=== PATIENT | female | born 1945 | race Caucasian/White ===

== ENCOUNTER → 2016-07-08 | Outpatient (CLI) | payer MEDICARE, BC ==
[~2016-07-08] MED LIST: CLARITIN10 M3 PO; CLONIDINE PO; FUROSEMIDE40 MG PO; HYDRALAZINE HC100 MG PO; IBUPROFEN800 MG PO; IMDUR-ER60 MG PO; LEVOTHYROXINE175 MCG PO; LINZESS290 MCG PO; NORVASC PO; OMEPRAZOLE40 MG PO; PROVASTIN PO; TENORMIN25 MG PO; TIZANIDINE HCL4 M1 PO
--- NOTE | ~2016-07-08 | XA30 ---
[facility] A Service of [facility] & [facility] RADIOLOGY TEXT RESULTS PATIENT: ROSANA DAILEY [facility] UNIT #: [id number] AGE: [address]: Reno Guevara MD SEX: F ORDER DR: [id number] [facility] [address] [place], [place] [address] [id number] O MR#: [id number] Acc #: [id number] NAME: ROSANA DAILEY : 1945 SEX: F STUDY DATE/TIME: 07/08/2016 13:21 UNIT: [facility] ROOM: STUDY DESCRIPTION: XA Arthrocentesis Major Joint Attending Physician: Reno Guevara M.D. Ordering Physician: Reno Guevara M.D. Primary Care Physician: Saskia Chacon M.D. MEDICAL IMAGING REPORT This report is preliminary unless electronic signature is present PROCEDURE Fluoroscopically-guided right hip joint injection with steroid and local anesthetic. INDICATIONS Right hip pain and arthritis. The fluoro time was 0.6 minutes. The reference air kerma is 27 mg. The risks, benefits, and alternatives of the procedure were discussed with the patient, informed consent was obtained. In the procedure room, a time-out was performed confirming correct patient and procedure. All elements of maximal sterile-barrier technique utilized according to guidelines appropriate for the procedure. TECHNIQUE/FINDINGS The skin overlying the right hip was prepped and draped in the usual sterile fashion. 1% lidocaine was utilized to anesthetize the skin and underlying subcutaneous tissues. Next, under fluoroscopic guidance, 22-gauge needle was advanced into the hip joint space. Small amount of contrast injected confirming satisfactory positioning. Next, 2 mL of 40 mg/mL of Depo-Medrol followed by 3 mL of bupivacaine was injected into the hip joint space. The needle was removed and a sterile dressing was applied. No immediate complications. Pre-procedure pain with 6; postprocedure pain was 4. IMPRESSION Technically successful fluoroscopically guided hip joint injection with steroid and local anesthetic. Dictated by... Chay Mancini M.D. [facility] A Service of [facility] & [facility] RADIOLOGY TEXT RESULTS PATIENT: ROSANA DAILEY LOCATION: [facility] : 43 UNIT #: [id number] AGE: [address]: Reno Guevara MD SEX: F ORDER DR: THIS IS AN ELECTRONICALLY VERIFIED REPORT Chay Mancini M.D. at 07/09/2016 9:32 AM JAME/ivan TD: 07/08/2016 17:22 JOB #: [id number] MEDICAL IMAGING REPORT Page 1 of 1 COPY
== END | disposition home or self-care (01) ==
LOC: CIVR 12:44
PROC: 3E0U33Z Introduction of Anti-inflammatory into Joints, Percutaneous Approach (ICD-10-PCS; principal; 2016-07-08)
PROC: 3E0U3BZ Introduction of Anesthetic Agent into Joints, Percutaneous Approach (ICD-10-PCS; 2016-07-08)
DX: M16.11 Unilateral primary osteoarthritis, right hip (principal)
CPT/HCPCS: 77002; J1030; Q9966

== ENCOUNTER → 2016-10-08 | Outpatient (CLI) | payer MEDICARE, BC ==
--- NOTE | ~2016-10-08 | XA30 ---
[facility] A Service of [facility] & [facility] RADIOLOGY TEXT RESULTS PATIENT: ROSANA DAILEY [facility] : 43 UNIT #: [id number] AGE: [address]: Reno Guevara MD SEX: F ORDER DR: [id number] [facility] [address] [place], [place] [address] [id number] O MR#: [id number] Acc #: [id number] NAME: ROSANA DAILEY : 1945 SEX: F STUDY DATE/TIME: 10/08/2016 10:41 UNIT: [facility] ROOM: STUDY DESCRIPTION: XA Arthrocentesis Major Joint Attending Physician: Reno Guevara M.D. Referring Physician: Reno Guevara M.D. Ordering Physician: Reno Guevara M.D. Primary Care Physician: Saskia Chacon M.D. MEDICAL IMAGING REPORT This report is preliminary unless electronic signature is present EXAM Fluoroscopically-guided right hip injection INDICATION Right hip pain. Patient's most recent injection was performed July 08, 2016. PROCEDURE The risks, benefits, and alternatives to the procedure were explained to the patient, and signed, informed, informed consent was obtained. She was placed supine on the angiographic table and was prepped and draped in the usual sterile fashion. Time-out was performed as per protocol. Skin and subcutaneous tissues were anesthetized with buffered lidocaine and a 22-gauge spinal needle was advanced into the joint space. Contrast was injected which confirmed location within the joint space. I then instilled a combination of lidocaine, bupivacaine and Depo-Medrol. Needle was then removed and manual pressure was applied until hemostasis was obtained. Total fluoroscopy time was 0.2 minutes. AK was 9 mGy. IMPRESSION Technically successful fluoroscopically-guided right hip injection as noted above. Fluoroscopy was used during the procedure and permanent images were saved. Dictated by... Desire Brumfield M.D. THIS IS AN ELECTRONICALLY VERIFIED REPORT Desire Brumfield M.D. at 10/11/2016 5:06 PM AFF/mjs TD: 10/11/2016 13:56 [facility]. [facility] A Service of [facility] & [facility] RADIOLOGY TEXT RESULTS PATIENT: ROSANA DAILEY LOCATION: [facility] ACC #: [id number] : 41 UNIT #: [id number] AGE: [address]: Reno Guevara MD SEX: F ORDER DR: JOB #: [id number] MEDICAL IMAGING REPORT Page 1 of 1 COPY
== END | disposition home or self-care (01) ==
LOC: CIVR 10:12
DX: M25.551 Pain in right hip (principal); M19.90 Unspecified osteoarthritis, unspecified site
CPT/HCPCS: 77002; J1030; Q9966

== ENCOUNTER 2016-11-24 05:15 | Inpatient (IN) | payer MEDICARE, BC ==
[~2016-11-24] VITALS: Ht 152.4 cm; Wt 96.0 kg
--- NOTE | ~2016-11-24 | CO ---
Unit #: [id number] #: [id number] Patient: ROSANA CANDELARIO [id number] [facility] [address] [place] [address] [place], [place] [address] [id number] I MR#: [id number] NAME: ROSANA CANDELARIO ROOM: [facility] Age: 71 Sex: F Admission Date: 11/24/2016 : 1945 Attending Physician: Gala Brock M.D. Primary Care Physician: Saskia Chacon M.D. Consultation Date: 11/24/2016 CONSULTATION REPORT HISTORY OF PRESENT ILLNESS Ms. Candelario is a 71-year-old female, who presented to the emergency room at [facility] with complaints of nausea and vomiting for several days. She was noted to have significant hypertension that did not resolve with multiple doses of the medications, so she was transported to [facility] for treatment of her accelerated hypertension. She also was complaining of some abdominal pain after several days of nausea and vomiting. She denied any hematemesis, hematochezia, or melena. She stated she had a normal stool for her yesterday. She describes it is soft and brown. She does have a history of chronic constipation and takes Linzess and multiple stool softeners daily. She complained of being hot, but had no documented fever or chills. She denies any dysuria or productive cough. She has had a colonoscopy in 2008 that was normal, but she says she thinks she has internal hemorrhoids as she has blood on the toilet paper. She has had a previous upper scope in 2004. She cannot recall the reason, but did not have ulcer disease. PAST MEDICAL HISTORY She has had a cholecystectomy, appendectomy, hysterectomy, colonoscopy, EGD, history of COPD, hypertension, chronic constipation, hypothyroidism, reflux. ALLERGIES Allergic to Cipro, penicillin, and codeine. FAMILY HISTORY Noncontributory. SOCIAL HISTORY Nonsmoker. REVIEW OF SYSTEMS As above. PHYSICAL EXAMINATION VITAL SIGNS: Temperature is 99.1, pulse 85 and regular, respirations 16, currently her blood pressure is 120/71. GENERAL: She is awake, alert, oriented in good spirits. No acute disease. HEENT: Unremarkable. CARDIAC: Regular rhythm. LUNGS: Clear. ABDOMEN: Nondistended and soft. She complains of tenderness in the right lower quadrant, but it is very deep more in the pelvis and may be coming Unit #: [id number] #: [id number] Patient: ROSANA CANDELARIO from her chronic right hip osteoarthritis. ABDOMEN: Soft. When distracted ,there is no guarding, mass, or rebound. She has well-healed surgical scars without hernia. EXTREMITIES: No edema. NEUROLOGIC: Grossly intact. DIAGNOSTIC STUDIES LABORATORY RESULTS: Show potassium of 3.3, otherwise her chemistries are normal. Calcium was 10.2 with the upper limit normal being 10.3. Lactic acid on admission was 2.4. Urinalysis showed 2 to 5 white cells, 5 to 10 red cells. INR is 1.09. White count 11.5, hemoglobin 18.1, platelets 228,000. There was yeast in her urine. IMAGING STUDIES: CT scan of the chest showed no acute disease. There is possibly some underlying cardiomegaly, but no pneumonia or acute findings. CT of the abdomen and pelvis shows no acute findings. ASSESSMENT AND PLAN The patient with abdominal pain after several days of nausea and vomiting. Her vomiting is certainly controlled at this point, and she states she is hungry and thirsty. CT scan did not show any intra-abdominal pathology, in particular no bowel obstruction. We will check some further labs and stimulate her bowel. She can have a clear liquids for now. Her hypertension is being managed by the Medical Service. No acute surgical issues are noted. Her abdominal pain where it is deep in the right lower quadrant certainly could be radiating from her hip as she stated that she is needing hip replacement. Dictated by... Tres Fu/ruperto TD: 11/24/2016 19:23 JOB #: [id number] CONSULTATION REPORT Page 1 of 1 X Uri Aden MD CONSULTATION REPORT
--- NOTE | ~2016-11-24 | HP ---
Unit #: [id number] #: [id number] Patient: ROSANA DAILEY [id number] [facility] [address] [place], [place] [address] [id number] I MR#: [id number] NAME: ROSANA DAILEY ROOM: [facility] Age: 71 Sex: F Admission Date: 11/24/2016 : 1945 Attending Physician: Gala Brock M.D. Primary Care Physician: Saskia Chacon M.D. HISTORY AND PHYSICAL REASON FOR ADMISSION Intractable nausea, vomiting, accelerated hypertension due to inability to take routine medications, possible colitis. HISTORY OF PRESENT ILLNESS Patient is a very pleasant 71-year-old female with no previous hospital admissions here at [facility] who has a prior history of asthma, arthritis, COPD, osteoarthritis, hypertension, IgG deficiency, pulmonary hypertension, sleep apnea, who presented to [facility] with complaints of right lower quadrant pain and/or discomfort. She also stated she had approximately a 24-48 hour history of nausea with a 24 hour history of associated vomiting episodes. She was unable to keep her blood pressure medications down. While she was evaluated at the outside facility, she was noted to have persistent systolic blood pressures greater than 200 and, in consideration of accelerated hypertension as well as intractable nausea/vomiting, decision was made for transfer to [facility] for further evaluation. There are chart notes which are documented in regards to her CT chest did not show any acute findings as well as CT pelvis which did not show any acute findings but I do not have the CT abdomen report via paperwork that was sent with patient. At outside facility, patient's blood pressure was documented at 207/100. Her temperature was also noted to be 100.6. Glucose was 177. White count 11.5, hemoglobin 18.1. UA mildly positive for ketones, blood, bacteria as well as yeast. PAST MEDICAL HISTORY 1. IgG deficiency approximately 10 years. 2. Osteoarthritis. 3. Asthma. 4. COPD. 5. Osteoarthritis. 6. Hypertension. 7. Pulmonary hypertension. 8. Sleep apnea. PAST SURGICAL HISTORY 1. Cholecystectomy. 2. Tonsillectomy. 3. Hysterectomy. Unit #: [id number] #: [id number] Patient: ASHLIE,ROSANA 4. Knee surgery. 5. Uvula surgery. FAMILY HISTORY Heart disease - mother. DOCUMENTED MEDICATIONS 1. Amitiza. 2. Linzess. 3. Lotensin. 4. Prilosec. 5. Singulair. 6. Clonidine. 7. Hydralazine. 8. Imdur. 9. Synthroid. 10. Losartan. 11. Prednisone. ALLERGIES Cipro, codeine, penicillin. SOCIAL HISTORY Negative alcohol, negative tobacco, negative illicit drug use. REVIEW OF SYSTEMS Please see HPI. 12-point otherwise negative except for those positives noted in the HPI. PHYSICAL EXAMINATION AT OUTSIDE FACILITY VITAL SIGNS: Temperature noted to be 100.6, blood pressure 207/100, heart rate 84. GENERAL APPEARANCE: The patient is alert, oriented, no acute distress. SKIN: Warm. HEAD: Normocephalic, atraumatic. NECK: Trachea midline. EYE: Pupils are equal, round, reactive to light. ENT/MOUTH EXAM: Oral mucosa moist. CVS: S1, S2 without murmur. RESPIRATORY: Clear, nonlabored. MUSCULOSKELETAL: Normal range of motion. GI: Soft, nondistended. Patient has right lower abdomen tenderness to palpation. No rebound, no guarding. NEUROLOGIC: A and O x3. PSYCHIATRIC: Cooperative. Normal mood and affect demonstrated. INITIAL ADMISSION DIAGNOSES 1. Intractable nausea and vomiting. 2. Accelerated hypertension. 3. Presumed colitis per patient. However, I do not have CT abdomen and pelvis reports. 4. Leukocytosis. 5. IgG deficiency. 6. History of hypertension. 7. COPD. 8. Pulmonary hypertension. 9. Prior history of osteoarthritis. Unit #: [id number] #: [id number] Patient: ROSANA DAILEY PLAN Admission, ICU. Wire Stripper consult. Cardene drip secondary to inability to tolerate p.o. LSA consult. Obtain previous records in regards to CT abdomen. If not performed, will perform now. Ascertain if true allergies to Cipro and/or penicillin. Routine symptom management. Electrolyte replacement. Ultrasound gallbladder to rule out underlying gallbladder etiology. Plans were reviewed with patient. She expresses understanding and agreement. We will try to transition her back to oral medications once tolerable. Dictated by Tres aBird/muna TD: 11/24/2016 11:55 JOB #: [id number] HISTORY AND PHYSICAL Page 1 of 1 X Gala Brock MD HISTORY AND PHYSICAL
--- NOTE | ~2016-11-24 | DS ---
Unit #: [id number] #: [id number] Patient: ROSANA DAILEY [id number] [address] [place], [place] [address] [id number] I MR#: [id number] NAME: ROSANA DAILEY ROOM: 215 Age: 71 Sex: F Admission Date: 11/24/2016 : 1945 Discharge Date: 11/27/2016 Attending Physician: Gala Brock M.D. Primary Care Physician: Saskia Chacon M.D. DISCHARGE SUMMARY REASON FOR ADMISSION Transfer from outside facility secondary to intractable nausea and vomiting, accelerated hypertension, inability to take routine medications, questionable colitis. HISTORY OF PRESENT ILLNESS/HOSPITAL COURSE Please refer to H and P for complete details. Initially, the patient's blood pressure was elevated. The patient was placed on Cardene drip. This subsequently placed the patient in the ICU for ongoing care. Cardene drip was gradually weaned. The patient was maintained on symptomatic management in regard to her nausea and vomiting, which did show improvement. She was able to initially tolerate clears and was gradually transitioned to a regular diet. Blood pressure medications were resumed. There was questionable colitis seen on outside facility; however, CT chest, abdomen, and pelvis as obtained from outside facility has not shown any acute colitis. Initial urinalysis was also positive, but final urine culture did not show any acute bacterial growth. Today, at the time of discharge, the patient's laboratory studies showed a creatinine of 0.8. Electrolytes are unremarkable. Hemoglobin is 13.1, white count 7.1. The patient has tolerated diet well without difficulty. The patient will be discharged home in stable condition on her routine medications including Claritin 10 mg, Linzess, as well as hydralazine. In addition, we will add Norvasc 5 mg p.o. daily to her regimen. FINAL DISCHARGE DIAGNOSES 1. Accelerated hypertension, now improved. 2. Headache/intractable likely secondary to accelerated hypertension. 3. Intractable nausea and vomiting, now improved. 4. Prior history of IgG deficiency. 5. Chronic obstructive pulmonary disease. 6. Arthritis. 7. Asthma. 8. Osteoarthritis. Unit #: [id number] #: [id number] Patient: ROSANA DAILEY 9. Pulmonary hypertension. 10. Sleep apnea. DISCHARGE MEDICATIONS Claritin 10 mg p.o. daily; Linzess 290 mcg p.o. daily; Norvasc 5 mg p.o. daily; hydralazine 100 mg p.o. q.8; Zanaflex 4 mg p.o. q.8 p.r.n.; Synthroid 175 mcg p.o. daily, note new dosage; Imdur 60 mg p.o. daily. DISCHARGE INSTRUCTIONS Follow up PCP in 7 days. The patient to have a repeat BMP and TSH level in 4 weeks. Her Synthroid dosage was decreased from 200 mcg down to 175 mcg secondary to decreased TSH. DISCHARGE DISPOSITION Home. Dictated by... Tres Baird/ruperto TD: 11/30/2016 05:49 JOB #: [id number] DISCHARGE SUMMARY Page 1 of 1 X Gala Brock MD X DISCHARGE SUMMARY
--- NOTE | ~2016-11-24 | CO ---
Unit #: [id number] #: [id number] Patient: ROSANA DAILEY [id number] [address] [address] [id number] I MR#: [id number] NAME: ROSANA DAILEY ROOM: 215 Age: 71 Sex: F Admission Date: 11/24/2016 : 1945 Attending Physician: Gala Brock M.D. Primary Care Physician: Saskia Chacon M.D. Consultation Date: 11/24/2016 CONSULTATION REPORT REASON FOR CONSULT ICU management. REASON FOR ADMISSION Intractable nausea and vomiting. HISTORY OF PRESENT ILLNESS This is a very pleasant 71-year-old female with past medical history significant for IgG deficiency, osteoarthritis, asthma, COPD, hypertension, pulmonary hypertension, sleep apnea who presented to the emergency room with 2 days history of progressive abdominal discomfort and pain associated with intractable nausea, vomiting and loose stool. In the emergency room, her blood pressure was noted to be above 200. Patient was admitted to the ICU for blood pressure management. Patient stated that she was unable to keep any of her medication down and this is likely the reason for her uncontrolled hypertension. PAST MEDICAL HISTORY 1. IgG deficiency. 2. Osteoarthritis. 3. Asthma. 4. COPD. 5. Osteoarthritis. 6. Hypertension. 7. Pulmonary hypertension. 8. Sleep apnea. PAST SURGICAL HISTORY 1. Cholecystectomy. 2. Tonsillectomy. 3. Hysterectomy. 4. Knee surgery. 5. Uvula surgery. FAMILY HISTORY Heart disease. HOME MEDICATION 1. Prilosec. 2. Singulair. 3. Clonidine. 4. Hydralazine. Unit #: [id number] #: [id number] Patient: ROSANA DAILEY 5. Imdur. 6. Synthroid. 7. Losartan. 8. Prednisone. 9. Amitiza. ALLERGIES Cipro, codeine, penicillin. SOCIAL HISTORY No history of alcohol, drug abuse or smoking. REVIEW OF SYSTEMS 12-point review of systems were obtained and were negative except for what was mentioned in the HPI. PHYSICAL EXAM GENERAL: The patient appears tired and sick but she is not toxic. VITAL SIGNS: Blood pressure is 195/105, respiratory rate 18. HEENT: Atraumatic, normocephalic. PERRLA, EOMI. NECK: Supple. No JVD, no lymphadenopathy. CHEST: Clear to auscultation bilaterally. HEART: S1, S2. No murmur, gallops or rubs. ABDOMEN: Tender to deep palpation in the right lower quadrant. EXTREMITIES: No edema or cyanosis. SKIN: No rashes. EXPERIENCED TRUCK DRIVER: Awake, alert, oriented x3. No focal motor/sensory deficits. LABS AND OTHER TESTS LABORATORY: Creatinine 0.9, sodium 141, potassium 2.9, hemoglobin 17.9, white blood count 11.0. ASSESSMENT 1. Accelerated hypertension/hypertensive urgency. 2. Intractable nausea and vomiting. 3. Gastroenteritis. 4. IgG deficiency. 5. Leukocytosis. 6. Hypertension. 7. COPD. 8. Pulmonary hypertension. PLAN 1. Patient will be monitored in ICU very closely due to her elevated blood pressure. Cardene drip will be continued until she is able to keep her home medication down. 2. (1) management. 3. IV hydration. 4. Pain management. 5. Keep NPO for now and will advance to clear liquid when she is more stable. 6. DVT/GI prophylaxis. I would like to thank you for allowing me to be part of this patient care. Unit #: [id number] #: [id number] Patient: ROSANA DAILEY Dictated by... Jerrod Woodruff M.D. EA/muna TD: 11/26/2016 08:10 JOB #: [id number] CONSULTATION REPORT Page 1 of 1 X JERROD IRVING MD CONSULTATION REPORT
--- NOTE | ~2016-11-24 | BMI ---
[facility] Nutrition Therapy DATE: 11/24/16 Patient: ROSNAA DAILEY Physician: ELEN Address: [address] [place] [address] Room/Bed: [address], Zip: [place] [address] Admit Date: 11/24/16 Date of : [birth year] Height: 5 0 Weight: 205 93 HIGH BMI NOTE: DX: 71 Y.O. FEMALE ADMITTED FOR ACCELERATED HTN, ABD PAIN ANTHROPOMETRICS: 5'0", WT: 205# (93 KG), BMI: 40 DIET: PLANS FOR CLEAR LIQUID DIET RECOMMENDATIONS: 1. ONCE MEDICALLY FEASIBLE, ADVANCE DIET INDICATED TO HEALTHY HEART TO PROMOTE GRADUAL WEIGHT LOSS TOWARDS HEALTHY BMI (19.0-25.0) OR +/-10%IBW RD WILL F/U PER PROTOCOL Respectfully, ELSA VILLAFUERTE MS, RD, LD Food and Nutritional Services [facility] cc: client file
[~2016-11-24 05:15] MED LIST changes: -CLARITIN10 M3 PO; -HYDRALAZINE HC100 MG PO; -LINZESS290 MCG PO; -NORVASC PO; -TIZANIDINE HCL4 M1 PO
[2016-11-24 09:00] LABS: BASOPHIL# 0.1 X10e3 (0-0.3); BASOPHIL% 0.6 % (0-2.5); EOSINOPHIL% 0.2 % (0.0-7.0); HEMATOCRIT 53.7 % (35.0-45.0); HEMOGLOBIN 17.9 gm/dL (12.0-16.0); LYMPHOCYTE# 1.7 X10e3 (1.0-3.5); LYMPHOCYTE% 15.7 % (17.0-45.0); MEAN CELL VOLUME 92.5 FL (83-96); MEAN CORPUSCULAR HEMOGLOBIN 30.9 PG (28-34); MEAN CORPUSCULAR HGB CONC 33.4 g/dL (30-36); MEAN PLATELET VOLUME 8.3 FL (6.5-11.5); MONOCYTE# 1.1 X10e3 (0-1.0); NEUTROPHIL# 8.1 X10e3 (1.5-7.1); NEUTROPHIL% 73.5 % (40-75); PLATELET COUNT 201 X10e3 (140-420); RED CELL DISTRIBUTION WIDTH 13.6 % (11.0-15.5)
[2016-11-24 09:01] LABS: DIFF IND NO
[2016-11-24 09:15] LABS: INR 1.2; PARTIAL THROMBOPLASTIN TIME 26.9 SECONDS (23.5-31.3); PROTHROMBIN TIME (PATIENT) 12.7 SECONDS (10.0-11.7)
[2016-11-24 09:37] LABS: BUN/CREATININE RATIO 21.25; CREATININE SERUM 0.8 mg/dL (0.6-1.4); GLOM FILT RATE Estimated 73.2 mL/min (>60)
[2016-11-24 09:38] LABS: ALBUMIN SERUM 4.5 g/dL (3.5-5.0); BILIRUBIN,TOTAL 1.1 mg/dL (0.2-2.0); CALCIUM SERUM 9.5 mg/dL (8.4-10.2); PROTEIN TOTAL SERUM 7.6 g/dL (6.0-8.3)
[2016-11-24 09:39] LABS: POTASSIUM 2.9 mmol/L (3.5-5.1)
[2016-11-24] MEDS ORDERED: HYDRALAZINE HC100 MG PO (15:28)
[2016-11-24] MEDS ORDERED: TIZANIDINE HCL4 M1 PO (15:29)
[2016-11-24] MEDS ORDERED: LINZESS290 MCG PO (15:30)
[2016-11-24] MEDS ORDERED: CLARITIN10 M3 PO (15:33)
[2016-11-25 05:05] LABS: BASOPHIL# 0.1 X10e3 (0-0.3); BASOPHIL% 0.8 % (0-2.5); EOSINOPHIL# 0.1 X10e3 (0-0.7); EOSINOPHIL% 1.2 % (0.0-7.0); HEMATOCRIT 47.5 % (35.0-45.0); LYMPHOCYTE# 1.9 X10e3 (1.0-3.5); LYMPHOCYTE% 20.4 % (17.0-45.0); MEAN CORPUSCULAR HGB CONC 32.6 g/dL (30-36); MEAN PLATELET VOLUME 8.5 FL (6.5-11.5); MONOCYTE# 0.9 X10e3 (0-1.0); MONOCYTE% 10.4 % (3.0-12.0); NEUTROPHIL# 6.1 X10e3 (1.5-7.1); NEUTROPHIL% 67.2 % (40-75); PLATELET COUNT 206 X10e3 (140-420); RED CELL DISTRIBUTION WIDTH 13.6 % (11.0-15.5); WHITE BLOOD COUNT 9.1 X10e3 (4.0-10.5)
[2016-11-25 05:11] LABS: DIFF IND NO; HEMOGLOBIN 15.5 gm/dL (12.0-16.0)
[2016-11-25 06:57] LABS: ALBUMIN SERUM 3.7 g/dL (3.5-5.0); BILIRUBIN,TOTAL 0.8 mg/dL (0.2-2.0); BUN/CREATININE RATIO 26.66; CALCIUM SERUM 8.8 mg/dL (8.4-10.2); CREATININE SERUM 0.9 mg/dL (0.6-1.4); GLOM FILT RATE Estimated 63.5 mL/min (>60); POTASSIUM 3.8 mmol/L (3.5-5.1); PROTEIN TOTAL SERUM 6.2 g/dL (6.0-8.3)
[2016-11-26 06:13] LABS: BASOPHIL# 0.1 X10e3 (0-0.3); BASOPHIL% 1.1 % (0-2.5); EOSINOPHIL# 0.2 X10e3 (0-0.7); EOSINOPHIL% 2.8 % (0.0-7.0); HEMATOCRIT 43.2 % (35.0-45.0); LYMPHOCYTE# 1.4 X10e3 (1.0-3.5); LYMPHOCYTE% 15.8 % (17.0-45.0); MEAN CELL VOLUME 95.3 FL (83-96); MEAN CORPUSCULAR HGB CONC 32.5 g/dL (30-36); MEAN PLATELET VOLUME 8.6 FL (6.5-11.5); MONOCYTE# 0.6 X10e3 (0-1.0); MONOCYTE% 6.7 % (3.0-12.0); NEUTROPHIL# 6.3 X10e3 (1.5-7.1); NEUTROPHIL% 73.6 % (40-75); PLATELET COUNT 173 X10e3 (140-420); RED BLOOD COUNT 4.53 X10e (3.90-5.30); RED CELL DISTRIBUTION WIDTH 13.8 % (11.0-15.5); WHITE BLOOD COUNT 8.5 X10e3 (4.0-10.5)
[2016-11-26 06:20] LABS: DIFF IND NO
[2016-11-26 06:45] LABS: ALBUMIN SERUM 3.8 g/dL (3.5-5.0); BILIRUBIN,TOTAL 0.8 mg/dL (0.2-2.0); BUN/CREATININE RATIO 24.44; CALCIUM SERUM 8.6 mg/dL (8.4-10.2); CREATININE SERUM 0.9 mg/dL (0.6-1.4); GLOM FILT RATE Estimated 63.5 mL/min (>60); POTASSIUM 4.7 mmol/L (3.5-5.1); PROTEIN TOTAL SERUM 5.9 g/dL (6.0-8.3)
[2016-11-27 05:14] LABS: HEMATOCRIT 39.4 % (35.0-45.0); HEMOGLOBIN 13.1 gm/dL (12.0-16.0); MEAN CELL VOLUME 94.9 FL (83-96); MEAN CORPUSCULAR HEMOGLOBIN 31.6 PG (28-34); MEAN CORPUSCULAR HGB CONC 33.3 g/dL (30-36); MEAN PLATELET VOLUME 8.6 FL (6.5-11.5); RED BLOOD COUNT 4.15 X10e (3.90-5.30); RED CELL DISTRIBUTION WIDTH 13.9 % (11.0-15.5); WHITE BLOOD COUNT 7.1 X10e3 (4.0-10.5)
[2016-11-27 05:50] LABS: CALCIUM SERUM 8.8 mg/dL (8.4-10.2); CREATININE SERUM 0.8 mg/dL (0.6-1.4); GLOM FILT RATE Estimated 73.2 mL/min (>60); POTASSIUM 4.1 mmol/L (3.5-5.1)
[2016-11-27] MEDS ORDERED: NORVASC PO (10:34)
== END 2016-11-27 14:00 | disposition home or self-care (01) | DRG 305 ==
LOC: C2A 05:15 → CICCU2 05:15 → UNDOADMIN 07:12 → CICCU2 07:18 → C2A 11-25 21:57 → CICCU2 11-25 21:57 → C2A 11-27 14:00
PROVIDERS: Family Medicine; Internal Medicine; Internal Medicine Pulmonary Disease
DX: I10 Essential (primary) hypertension (principal); D80.3 Selective deficiency of immunoglobulin G [IgG] subclasses; I27.2 Other secondary pulmonary hypertension; Z68.41 Body mass index [BMI] 40.0-44.9, adult; E66.01 Morbid (severe) obesity due to excess calories; R11.2 Nausea with vomiting, unspecified; J44.9 Chronic obstructive pulmonary disease, unspecified; J45.909 Unspecified asthma, uncomplicated; M19.90 Unspecified osteoarthritis, unspecified site; Z90.49 Acquired absence of other specified parts of digestive tract; Z90.710 Acquired absence of both cervix and uterus; Z88.0 Allergy status to penicillin; D72.829 Elevated white blood cell count, unspecified; K52.9 Noninfective gastroenteritis and colitis, unspecified; R51 Headache
CPT/HCPCS: 80048; 80053; 82150; 82947; 83036; 83605; 83690; 83735; 84443; 85025; 85027; 85610; 85730; 86677; 87040; 87086; 97116; 97161; 97530; C9113; G8978-GP; G8979-GP; J1170; J1815; J1885; J1956; J2405; J2765